=== PATIENT | male | born 1970 | race Hispanic/Latino ===

== ENCOUNTER 2023-02-19 10:43 | Emergency (ER) | payer OTHER ==
[~2023-02-19] VITALS: Ht 177.8 cm; Wt 124.7 kg
[~2023-02-19 10:43] MED LIST: ALLOPURINOL100 MG PO; BENICAR20 MG PO
[2023-02-19 11:22] LABS: BASOPHILS # (AUTO) 0.1 (0.0-0.1); BASOPHILS % 1.8 % (0.0-1.0); EOSINOPHILS # (AUTO) 0.3 (0.0-0.4); EOSINOPHILS % 7.6 % (0.0-6.0); HEMATOCRIT 40.9 % (38.2-49.6); HEMOGLOBIN 14.4 g/dL (14.0-18.0); LYMPHOCYTES % 24.8 % (18.0-39.1); MEAN CORPUSCULAR HGB CONC 35.2 g/dL (31-35); MEAN CORPUSCULAR VOLUME 82.3 fL (81-99); MONOCYTES # (AUTO) 0.4 (0.2-0.8); MONOCYTES % 9.7 % (4.4-11.3); NEUTROPHILS # (AUTO) 2.1 (2.1-6.9); NEUTROPHILS % 55.8 % (38.7-80.0); PLATELET COUNT 105 x10e3/uL (140-360); RED BLOOD COUNT 4.97 x10e6/uL (4.3-5.7); RED CELL DISTRIBUTION WIDTH 13.3 % (11.7-14.4); WHITE BLOOD COUNT 3.83 x10e3/uL (4.8-10.8)
[2023-02-19] MEDS ORDERED: KETOROLAC TROMETHAMINE 30 MG/ML VIAL IV STA (11:47)
[2023-02-19 11:53] LABS: ALBUMIN/GLOBULIN RATIO 1.4 (0.8-2.0); ANION GAP 16.3 mmol/L (8-16); CALCIUM 8.8 mg/dL (8.4-10.2); CREATININE, SERUM 0.84 mg/dL (0.72-1.25); TOTAL PROTEIN 6.8 g/dL (6.5-8.1)
[2023-02-19 11:56] LABS: POTASSIUM 3.3 mmol/L (3.5-5.1)
[2023-02-19] MEDS ORDERED: SODIUM CHLORIDE 0.9% 1000ML 1,000 ML IV ONE (12:00)
[2023-02-19] MEDS ORDERED: DIPHENHYDRAMINE HCL INJ 50 MG/ML VIAL IV ONE (12:00)
[2023-02-19] MEDS ORDERED: METOCLOPRAMIDE HCL 10 MG/2ML VIAL IV ONE (12:00)
[2023-02-19] MEDS ORDERED: ACETAMINOPHEN 325 MG TAB PO ONE (12:00)
[2023-02-19 12:06] LABS: BILIRUBIN,TOTAL 0.9 mg/dL (0.2-1.2)
[2023-02-19 12:07] LABS: TROPONIN I 0.003 ng/mL (0-0.300)
[2023-02-19 17:14] VITALS: BP 120/92; PULSE 61; RESP 15; TEMP 98.4; O2SAT 100
== END 2023-02-19 17:10 | disposition home or self-care (01) ==
LOC: ER 10:49
DX: R51.9 Headache, unspecified (principal); R20.2 Paresthesia of skin; M10.9 Gout, unspecified
CPT/HCPCS: 36415; 70450; 80053; 82948; 83690; 84484; 85025; 93005; 99284; J1200; J1885; J2765; J7030